=== PATIENT | male | born 1965 | race Caucasian/White ===

== ENCOUNTER 2019-04-29 21:49 | Emergency (ER) | payer BC ==
[~2019-04-29] VITALS: Ht 177.8 cm; Wt 99.8 kg
--- NOTE | 2019-04-29 23:15 | Diagnostic Imaging Report ---
Left hand 3 - views HISTORY: Pain. High pressure injection injury. COMPARISON: None FINDINGS: No displaced fracture. Remote healed fracture of the distal radial and ulnar epiphysis with remodeling. Diffuse subcutaneous emphysema and edema of the hand extending into the second through fifth fingers. No radiopaque foreign bodies. IMPRESSION: Diffuse subcutaneous emphysema and edema of the hand extending into the second through fifth fingers. Signed by: Dr. Chidi Miller M.D. on 04/29/2019 11:13 PM
--- OUTSIDE RECORDS SUMMARY | 2019-04-30 19:30 | XMS REPORT ---
[facility] Address Unknown Phone Unavailable Care Team Providers Care Health And Wellness Instructor Name Role Phone KYLETiffanie ENCISO Unavailable Unavailable Payers Payer Name Policy Type Policy Number Effective Date Expiration Date Problems This patient has no known problems. Allergies, Adverse Reactions, Alerts Allergy Name Allergy Type Status Severity Reaction(s) Onset Date Inactive Date Treating Clinician Comments No Known Allergies DA Active U 2019-04-30 00:00:00 No Known Contrast Allergies DA Active U 2007-07-29 00:00:00 No Known Drug Allergies DA Active U 2007-07-29 00:00:00 No Known Food Allergies DA Active U 2007-07-29 00:00:00 No Known Other Allergies DA Active U 2007-07-29 00:00:00 Medications This patient has no known medications. Results Test Description Test Time Test Comments Text Results Atomic Results Result Comments BASIC METABOLIC PANEL 2019-04-30 01:06:00 SODIUM (test code=NA) 140 mEq/L 134-147 POTASSIUM (test code=K) 3.8 mEq/L 3.4-5.0 CHLORIDE (test code=CL) 107 mEq/L 100-108 CARBON DIOXIDE (test code=CO2) 24 mEq/L 21-33 ANION GAP (test code=GAP) 13 0-20 GLUCOSE (test code=GLU) 109 mg/dL 70-110 BLOOD UREA NITROGEN (test code=BUN) 14 mg/dL 7-18 GLOMERULAR FILTRATION RATE (test code=GFR) 57.7 90-95 Units of measure=ml/min/1.73 m2 CREATININE (test code=CREAT) 1.3 mg/dL 0.6-1.3 CALCIUM (test code=CA) 8.5 mg/dL 8.0-10.5 HEPATIC FUNCTION [id number] 01:06:00* Test Item Value Reference Range Comments TOTAL PROTEIN (test code=PROT) 6.5 g/dL 6.4-8.2 ALBUMIN (test code=ALB) 3.80 g/dL 3.4-5.0 BILIRUBIN TOTAL (test code=BILT) 1.2 MG/DL <1.5 BILIRUBIN DIRECT (test code=BILD) 0.20 MG/DL 0.0-0.30 BILIRUBIN INDIRECT (test code=BILIND) 1.00 MG/DL SGOT/AST (test code=AST) 24 IUnit/L 15-37 SGPT/ALT (test code=ALT) 37 IUnit/L 15-65 ALKALINE PHOSPHATASE TOTAL (test code=ALKP) 120 IUnit/L 20-125 [id number] 01:06:00* Test Item Value Reference Range Comments ALCOHOL (test code=ALC) < 0.003 G/dL <0.003 Ethyl Alcohol Interpretation: 0.100 gm/dL - Legally Intoxicated 0.300-0.400 gm/dL - Severely Intoxicated >0.400 gm/dL - Potentially LethalResults are for Medical purposes only, and not for Legal orEmployment evaluation purposes. PROTHROMBIN [id number] 00:59:00* Test Item Value Reference Range Comments PROTHROMBIN TIME PATIENT (test code=PTP) 11.4 SECONDS 9.3-12.9 INTERNATIONAL NORMAL RATIO (test code=INR) 1.0 0.8-1.2 TARGET INR BY INDICATION Indication INR1. Prophylaxis of venous thrombosis 2.0 - 3.0 (orthopedic surgery), Prophylaxis of venous thrombosis (other than high-risk surgery), Treatment of Deep Vein Thrombosis/Pulmonary Embolism, Prevention of systemic embolism - Tissue heart valves, Acute Myocardial Infarction (to prevent systemic embolism), Valvular heart disease, Atrial Fibrillation, Bileaflet mechanical valve in aortic position.2. Mechanical prosthetic valves (high risk), 2.5 - 3.5 Presence of Lupus Anticoagulant or Antiphospholipid Antibodies, Prevention of systemic embolism - Acute Myocardial Infarction (to prevent recurrent infarct). THROMBOPLASTIN TIME [id number] 00:59:00* Test Item Value Reference Range Comments THROMBOPLASTIN TIME PARTIAL (test code=PTT) 29.8 Seconds 25.0-39.5 Therapeutic Range: 50.4 - 88.3 Seconds Effective 07/10/2018 BASIC METABOLIC [id number] 00:59:00* Test Item Value Reference Range Comments SODIUM (test code=NA) 140 mEq/L 134-147 POTASSIUM (test code=K) 3.8 mEq/L 3.4-5.0 CHLORIDE (test code=CL) 107 mEq/L 100-108 CARBON DIOXIDE (test code=CO2) 24 mEq/L 21-33 ANION GAP (test code=GAP) 13 0-20 GLUCOSE (test code=GLU) 109 mg/dL 70-110 BLOOD UREA NITROGEN (test code=BUN) 14 mg/dL 7-18 GLOMERULAR FILTRATION RATE (test code=GFR) 90-95 CREATININE (test code=CREAT) mg/dL 0.6-1.3 CALCIUM (test code=CA) 8.5 mg/dL 8.0-10.5 HEPATIC FUNCTION [id number] 00:59:00* Test Item Value Reference Range Comments TOTAL PROTEIN (test code=PROT) g/dL 6.4-8.2 ALBUMIN (test code=ALB) g/dL 3.4-5.0 BILIRUBIN TOTAL (test code=BILT) MG/DL <1.5 BILIRUBIN DIRECT (test code=BILD) MG/DL 0.0-0.30 SGOT/AST (test code=AST) IUnit/L 15-37 SGPT/ALT (test code=ALT) IUnit/L 15-65 ALKALINE PHOSPHATASE TOTAL (test code=ALKP) IUnit/L 20-125 [id number] 00:59:00* Test Item Value Reference Range Comments ALCOHOL (test code=ALC) G/dL <0.003 - XR HAND 3 + V [id number] 00:54:00 FAX: Nic Recinos DO [phone] [place]: [address]: PRE Name: ALEXYS HENSON [facility] Mallory : [birth year] Age/S: 53/M [address] [place] [address] Unit #: [id number] Loc: G.ERS[address] [place] [address] Phys: Nic Chi DO Acct: [id number] Dis Date: Status: PRE ER PHONE #: [phone] Exam Date: 04/30/201941 FAX #: [phone] Reason: HAND PAIN EXAMS: CPT CODE: [id number] XR HAND 3 + V LT 75762 Study: - XR HAND 3 + V LT 04/30/2019 12:26 AM Patient Name: ALEXYS BRAR MR: [id number] : 1965; Age: 53 years y/o Male Ordering Physician: Nic reyes DO Clinical Indication: Left hand pain. Injected MEK into lef t hand. Comparison: None Left hand, 3 views: IMPRESSION: No acute fracture, dislocation, or suspic ious focal osseous lesion. Mild to moderate diffuse soft tissu e thickening about the left hand greatest along the ulnar aspect near th e 4th and 5th metacarpals and along the dorsum of the hand. Large areas of scattered soft tissue gas are seen within the hand greatest along a similar distribution worrisome for soft tissue necrosis/gangrene. Tiny radiopaque soft tissue foreign body near the distal aspect of t he left radius. Mild osteoarthritis. SL: TPAINTER-H at 0054 Reported and signed by: Mihir Bo M.D. CC: Nic Chi DO Technologist: RT Carmelo(R) Trnscrd Date/Time/By: 04/30/2019 (53) : By: [email or web address] Orig Print D/T: S: 04/30/2019 (56) PAGE 1 Signed Report - XR CHEST 1 [id number] 00:50:00 FAX: Nic Recinos DO [phone] [place]: St: PRE Name: ALEXYS HENSON [facility] Aria Rosas : [birth year] Age/S: 53/M [address] [place] [address] Unit #: [id number] Loc: [address] [place] [id number] Phys: Nic Chi DO Acct: [id number] Dis Date: Status: PRE ER PHONE #: [phone] Exam Date: 04/30/201941 FAX #: [phone] Reason: CHEST PAIN EXAMS: CPT CODE: [id number] XR CHEST 1 V 05882 Study: - XR CHEST 1 V 04/30/2019 12:26 AM Patient Name: ALEXYS BRAR MR: [id number] : 1965; Age: 53 years y/o Male Ordering Physician: Nic Chi DO Clinical Indication: CHEST PAIN Comparison: None FINDINGS LUNGS: The lungs are clear of consolidation, pleural effusion, and pneumothorax. Trace linear subsegmental atelectasis or scarring laterally in the right lung base. Right paratracheal opacity medially in the right lung apex most consistent with the innominate ves sels. HEART AND MEDIASTINUM: Normal size heart. LINE S: None. OSSEOUS STRUCTURES: No fracture, dislocation, or suspicio us focal osseous lesion. OTHER: None. IMPRESSION: No acute abnormality as above discussed. SL: TPAINTER-H at 0050 Reported and signed by: Mihir Bo M.D. CC: Nic Chi DO Technologis t: RT Carmelo(Brandi) Trnscrd Date/Time/By: 04/30/2019 (49) : By: [email or web address] Orig Print D/T: S: 04/30/2019 (52) PAGE 1 Signed Report CBC W/AUTO [id number] 00:45:00* Test Item Value Reference Range Comments WHITE BLOOD CELL (test code=WBC) 8.25 x10 3/uL 4.5-11.0 RED BLOOD CELL (test code=RBC) 4.57 x10 6/uL 4.00-5.60 HEMOGLOBIN (test code=HGB) 14.7 g/dL 12.5-16.9 HEMATOCRIT (test code=HCT) 41.8 % 37.5-50.7 MEAN CELL VOLUME (test code=MCV) 91.5 fL 81.0-99.0 MEAN CELL HGB (test code=MCH) 32.2 pg 27.0-33.0 MEAN CELL HGB CONCETRATION (test code=MCHC) 35.2 g/dL 33.0-37.0 RED CELL DISTRIBUTION WIDTH CV (test code=RDW) 12.3 % 11.5-14.5 RED CELL DISTRIBUTION WIDTH SD (test code=RDW-SD) 40.7 fL 37.0-54.0 PLATELET COUNT (test code=PLT) 233 x10 3/uL 150-400 MEAN PLATELET VOLUME (test code=MPV) 9.3 fL 7.0-9.0 NEUTROPHIL % (test code=NT%) 56.4 % 56.0-77.0 IMMATURE GRANULOCYTE % (test code=IG%) 0.4 % 0.0-2.0 LYMPHOCYTE % (test code=LY%) 32.6 % 14.0-32.0 MONOCYTE % (test code=MO%) 8.5 % 4.8-9.0 EOSINOPHIL % (test code=EO%) 1.6 % 0.3-3.7 BASOPHIL % (test code=BA%) 0.5 % 0.0-2.0 NUCLEATED RBC % (test code=NRBC%) 0.0 % 0-0 NEUTROPHIL # (test code=NT#) 4.66 x10 3/uL 2.0-7.6 IMMATURE GRANULOCYTE # (test code=IG#) 0.03 x10 3/uL 0.00-0.03 LYMPHOCYTE # (test code=LY#) 2.69 x10 3/uL 1.0-3.8 MONOCYTE # (test code=MO#) 0.70 x10 3/uL 0.1-0.8 EOSINOPHIL # (test code=EO#) 0.13 x10 3/uL 0.0-0.2 BASOPHIL # (test code=BA#) 0.04 x10 3/uL 0.0-0.2 NUCLEATED RBC # (test code=NRBC#) 0.00 x10 3/uL 0.0-0.1 MANUAL DIFF REQUIRED (test code=MDIFF) NO HAND 3 VIEW - [id number] 23:11:00 [place] [address] Patient Name: ALEXYS BRAR MR #: [id number] : 1965 Age/Sex: 53/M Req #: [id number] Adm Physician: Ordered by: JORGE WRIGHT MD Report #: [id number] Location: [facility] Room/Bed: Procedure: [id number] [id number] HOPD/HAND 3 VIEW - [facility] Exam Date: 04/29/19 Exam Time: 2230 REPORT STATUS: Si gned Left hand 3 - views HISTORY: Pain. High pressure injection injury. COMPARISON: None FINDINGS: No displaced fracture. Remote h ealed fracture of the distal radial and ulnar epiphysis with remodeling. Dif fuse subcutaneous emphysema and edema of the hand extending into the second th rough fifth fingers. No radiopaque foreign bodies. IMPRESSION: Diffuse s ubcutaneous emphysema and edema of the hand extending into the second through fifth fingers. Signed by: Dr. Chidi Gaitan M.D. on 04/29/2019 11:13 PM Dictated By: EVON GAITAN MD, MD 12 Transcribed By: KENDRA on 04/29/192312 [employer] Y TO: JORGE WRIGHT MD
== END 2019-04-29 23:38 | disposition left against medical advice (07) ==
LOC: FSED 21:49
DX: S61.237A Puncture wound without foreign body of left little finger without damage to nail, initial encounter (principal); Y99.0 Civilian activity done for income or pay